=== PATIENT | male | born 2005 | race Caucasian/White ===

== ENCOUNTER 2024-04-08 15:31 | Emergency (ER) | payer SELFPAY ==
[~2024-04-08] VITALS: Ht 167.6 cm; Wt 56.7 kg
[2024-04-08 15:44] VITALS: BP 115/78; PULSE 53; RESP 16; TEMP 98.6; O2SAT 98
[2024-04-08 16:01] LABS: APPEARANCE,URINE CLEAR (CLEAR); BILIRUBIN,URINE NEGATIVE (NEGATIVE); COLOR,URINE LIGHT-YELLOW (YELLOW); GLUCOSE, URINE (UA) NEGATIVE (NEGATIVE); KETONES,URINE NEGATIVE (NEGATIVE); LEUKOCYTE ESTERASE ,URINE NEGATIVE Leu/uL (NEGATIVE); NITRATE,URINE NEGATIVE (NEGATIVE); OCCULT BLOOD,URINE NEGATIVE (NEGATIVE); PROTEIN,URINE NEGATIVE (NEGATIVE); UROBILINOGEN,URINE 0.2 mg/dL (0.2-1.0)
[2024-04-08 16:03] LABS: ADD UA MICROSCOPIC YES
[2024-04-08 16:04] LABS: MUCUS,URINE RARE LPF (None Seen); RBC,URINE 0-1 /HPF (0-1); WBC,URINE 0-1 /HPF (0-1)
--- NOTE | 2024-04-08 16:23 | HMCIMG ---
US SCROTUM & CONTENTS REASON: left testicular pain/swelling COMPARISON: None TECHNIQUE: Routine scrotal sonogram was performed. Vascular evaluation was also performed using spectral analysis and color flow imaging. FINDINGS: Right testicle is 4.7 x 2.3 x 3.3 cm, left is 3.9 x 2.2 x 2.5 cm. Both have homogeneous parenchyma with no focal masses. There is normal-appearing blood flow on the right. The right epididymis appears normal. The left testicle appears hyperemic. The left to epididymis appears unremarkable. There is prominent pampiniform plexus on the left consistent with a small varicocele, largest vein 4 mm. IMPRESSION: 1. Mild hyperemia of the left testicle which can reflect early orchitis 2. Small left-sided varicocele, largest vein 4 mm on Valsalva.
--- NOTE | 2024-04-08 16:41 | ERN ---
General Chief Complaint: Testicular Injury/Pain Stated Complaint: LEFT TESTICULAR PAIN Time Seen by MD: 15:35 Time Seen by Midlevel: 15:35 Source: patient History of Present Illness Initial Comments Patient is a 18-year-old male with no significant past medical history presenting to the emergency department with left testicular pain that started three days ago. Patient denies any direct injury to the area. Denies any dysuria, hematuria, abnormal discharge, or any other symptoms at this time. He does report being sexually active but has a low concern for a sexually transmitted disease. Past Medical History Past Medical History: No Pertinent History Past Surgical History: Appendectomy ROS Dictation CONSTITUTIONAL: Negative except for HPI HEAD/FACE: Negative except for HPI EENT: Negative except for HPI RESPIRATORY: Negative except for HPI GASTROINTESTINAL/ABDOMINAL: Negative except for HPI GENITOURINARY: Negative except for HPI MUSCULOSKELETAL: Negative except for HPI INTEGUMENTARY: Negative except for HPI NEUROLOGICAL/PSYCH: Negative except for HPI HEMATOLOGIC/LYMPHATIC: Negative except for HPI All Systems Negative, Except as noted above. 13 point review of systems assessed and all negative except for above. Physical Exam Physical Exam Dictation Vital Signs reviewed General Appearance: Alert, oriented x 3, no acute distress, well developed, nourished. Head and Face: non-traumatic. Eyes: PERRL, pink conjunctivas, eyelid no trauma, anterior chamber with arcus senilis. Ears: Pinnas intact and no signs of trauma or erythema ear canals clear and no discharge TM no erythema Nose: No discharge, no bleeding. Oropharynx: Mouth normal, tongue pink, pharynx clear,no erythema, tonsils no exudates, no abscesses noted, mucous membrane moist Neck: Supple, non-tender, no thyromegaly, no masses, no JVD, no bruits Breast:Deferred Chest:No tenderness, no crepitus, no paradoxical movement, no retractions Lungs:Clear, well-ventilated, symmetric, no rales, no wheezing, no rhonchi, no stridor, good breath sounds bilaterally Heart: Regular rate, regular rhythm, no murmur, no gallops Vascular: no peripheral edema, Abdomen: Soft, positive bowel sounds, nondistended, no guarding, nontender, no rebound, no masses no hepatomegaly, no splenomegaly, no Peña's sign, no hernias. Rectal: Deferred Genital: Deferred Neurological: Normal speech, motor function intact, sensory function intact Musculoskeletal: Neck nontender, full range of motion, back nontender, full range of motion, Extremities: nontender, full range of motion Skin: Color pink, dry, no turgor, no rash, no lacerations, no abrasions, no contusions. Lymphatic: Deferred Results Laboratory and Microbiology Lab and Micro Result Laboratory Tests Test 04/08/24 15:39 Urine Color LIGHT-YELLOW (YELLOW) Urine Appearance CLEAR (CLEAR) Urine pH 6.0 (5.0-8.0) Urine Specific [place] 1.016 (1.001-1.031) Urine Protein NEGATIVE mg/dL (NEGATIVE) Urine Glucose (UA) NEGATIVE mg/dL (NEGATIVE) Urine Ketones NEGATIVE mg/dL (NEGATIVE) Urine Occult Blood NEGATIVE (NEGATIVE) Urine Nitrate NEGATIVE (NEGATIVE) Urine Bilirubin NEGATIVE mg/dL (NEGATIVE) Urine Urobilinogen 0.2 mg/dL (0.2-1.0) Urine Leukocyte Esterase NEGATIVE Jessica/uL Urine RBC 0-1 /HPF (0-1) Urine WBC 0-1 /HPF (0-1) Urine Bacteria None /HPF (None Seen) Labs Reviewed?: Yes MDM MDM: Patient is a 18-year-old male with no significant past medical history presenting to the emergency department with left testicular pain that started three days ago. Patient denies any direct injury to the area. Denies any dysuria, hematuria, abnormal discharge, or any other symptoms at this time. He does report being sexually active but has a low concern for a sexually transmitted disease. On physical examination patient is in no acute distress. Initial vital signs are stable. A urinalysis was obtained but does not show any evidence of infection. Scrotal ultrasound reveals some mild hyperemic of the left testicle which could be consistent with mild orchitis. There was also a left varicocele which most likely explains the patient's symptoms. Patient states the last time he was tested for sexually transmitted disease was over a year and a half ago. He was a low concern for an STD at this time but states he would like to be tested for chlamydia and gonorrhea. I offered treatment since there was a concern for sexually transmitted disease but he refused. Patient states he was just like to be tested and if his tests are positive he will be treated for it. Patient education was given to the patient regarding varicoceles and he was advised to follow up with his primary care doctor in 2-3 days for repeat evaluation. Return precautions were discussed. Patient is stable for discharge Differential diagnosis: Epididymitis, urinary tract infection, STD, varicocele, hydrocele, spermatocele There are no social concerns with this patient. Prescription drug management Prescriptions will include: None Medical management and examination interpretation discussions were had by me with other qualified healthcare professionals as indicated for the patient's care. ED Course Orders Procedure Category Date Status Time Urinalysis Profile LAB 04/08/24 Complete 15:37 Us Scrotum & Contents US 04/08/24 Resulted 15:37 Chlamydia & Gc Pcr EDA 04/08/24 Logged 16:33 Vital Signs Date Time Temp Pulse Resp B/P (MAP) Pulse Ox O2 Delivery O2 Flow Rate FiO2 04/08/24 15:44 98.6 53 16 115/78 98 Room Air* 0 21 04/08/24 15:32 98.6 63 20 113/75 99 Room Air 0 [place] [address] [address] IMAGING REPORT Signed PATIENT: ROSALIE TAYLOR MR#: [id number] : 2005 SEX: M AGE: 18 LOCATION: [facility] ORDER 36 STATUS: [facility] REPORT#: [id number] SERVICE 36 REASON: left testicular pain/swelling ORDERING PHYSICIAN: THIAGO PEREZ PROCEDURE: SCROTUM - US SCROTUM & CONTENTS US SCROTUM & CONTENTS REASON: left testicular pain/swelling COMPARISON: None TECHNIQUE: Routine scrotal sonogram was performed. Vascular evaluation was also performed using spectral analysis and color flow imaging. FINDINGS: Right testicle is 4.7 x 2.3 x 3.3 cm, left is 3.9 x 2.2 x 2.5 cm. Both have homogeneous parenchyma with no focal masses. There is normal-appearing blood flow on the right. The right epididymis appears normal. The left testicle appears hyperemic. The left to epididymis appears unremarkable. There is prominent pampiniform plexus on the left consistent with a small varicocele, largest vein 4 mm. IMPRESSION: 1. Mild hyperemia of the left testicle which can reflect early orchitis 2. Small left-sided varicocele, largest vein 4 mm on Valsalva. DICTATED BY: CONSUELO ISRAEL MD DATE: 04/08/241618 ELECTRONICALLY SIGNED BY: CONSUELO ISRAEL MD DATE: 04/08/241622 DX & DISP Disposition: Discharge Departure Impression: Primary Impression: Left varicocele Condition: Stable Additional Instructions: Your scrotal ultrasound reveals a left varicocele. Your urinalysis does not show any evidence of infection. You were tested for chlamydia and gonorrhea. Your results should be available in 3-5 business days. If you do not receive a phone call from us your test results were negative. Follow up with your primary care provider in 2-3 days for repeat evaluation. Return to the ER for any new or worsening symptoms Time of Disposition: 16:38 I have reviewed the case, and I agree with, Diagnosis and Plan I performed the substantive portion of the visit. I have reviewed and personally made and approve the management plan that is documented in the note by myself or the LYNN. I acknowledge for responsibility for the patient's management plan. THIAGO PEREZ Apr 08, 2024 16:41
== END 2024-04-08 16:47 | disposition home or self-care (01) ==
LOC: EDH 15:31
DX: I86.1 Scrotal varices (principal); Z90.49 Acquired absence of other specified parts of digestive tract
CPT/HCPCS: 76870; 81001; 87491; 87591; 99284